=== PATIENT | female | born 1990 | race Caucasian/White ===

== ENCOUNTER → 2023-06-25 12:43 | Outpatient (CLI) | payer OTHER, SELFPAY ==
--- NOTE | 2023-06-25 12:47 | DI.US.S_ITS ---
PROCEDURE: US OB >= 14 WEEKS FETUS INDICATIONS: anatomy OUTSIDE/PRIOR DATING DATA: Last menstrual period (LMP): 02/04/2023. LMP-based estimated date of delivery (JAQUAN): 11/11/2023. First dating scan (date and location): 03/28/2023 (images are not available for review). Estimated date of delivery (JAQUAN) from first dating scan: 11/09/2023. TECHNIQUE: Real-time scanning was performed of the fetus, with image documentation and biometric measurements. COMPARISON: None. FINDINGS: General: A single living intrauterine gestation is present. Presentation: Vertex. Placenta: Placental position is posterior , without previa. Amniotic fluid index: 9.6 cm, normal range is 5-24 cm. Single deepest vertical pocket is 2.7 cm. heart rate: 165 beats per minute. Maternal cervical canal: 3.7 cm long. Normal lower limit is 2.5 cm. biometrics: Biparietal diameter: 5 cm, 21 weeks Head circumference: 18.6 cm, 20 weeks and 6 days Abdominal circumference: 15.5 cm, 20 weeks and 5 days Femur length: 3.2 cm, 20 weeks Clinically estimated gestational age: 20 weeks and 1 day Composite gestational age from present scan: 20 weeks and 5 days Estimated weight and percentile: 353 g, 62 percentile Anatomic survey: Neuro: Ventricles are non-dilated at less than 10 mm. Cisterna magna is normal at 3-11 mm. Cerebellum is normal in size and morphology. Nuchal skin fold: Normal at less than 6 mm between 14-21 weeks gestational age. Face: Nose and lips, facial profile are normal. Spine: No evidence for spina bifida. Heart: 4-chambered heart is present, with normal ventricular outflow tracts. Diaphragm: Diaphragm is intact. Stomach: Left-sided stomach is present. Kidneys: No hydronephrosis. Normal is less than 5 mm in 2nd trimester, less than 7 mm in 3rd trimester. Cord: 3-vessel cord has orthotopic insertion. Bladder: Normal in size. Extremities: All 4 extremities identified. IMPRESSION: Routine anatomic survey without significant abnormalities. Living hall at 20 weeks and 1 day, with concordant biometry at the 62 percentile. Dictated by: Subhash Hoang M.D. on 06/28/2023 at 14:20 Approved by: Subhash Hoang M.D. on 06/28/2023 at 14:23
== END ==
PROVIDERS: Referring Provider Obstetrics & Gynecology; Visit Provider Obstetrics & Gynecology
DX: Z3A.20 20 weeks gestation of pregnancy; Z34.82 Encounter for supervision of other normal pregnancy, second trimester
CPT/HCPCS: 76811

== ENCOUNTER → 2023-07-03 12:29 | Outpatient (CLI) | payer OTHER, SELFPAY ==
[2023-07-04 09:00] LABS: Varicella IgG Antibody 1656 index (Immune >165)
[2023-07-05 17:28] LABS: Hepatitis B Surface Antigen NEGATIVE s/c (NEGATIVE); Rubella Antibody IgG 76.5 IU/mL (>15)
[2023-07-05 20:58] LABS: AFP Value 152.4 ng/mL (.); Gest Age on Col Date 21.3 weeks (.); Insulin Dep Diabetes No (.); OSBR Risk 1IN 311 (.); Results Report (.); Test Results *Screen Negative* (.)
== END ==
PROVIDERS: Referring Provider Obstetrics & Gynecology; Visit Provider Obstetrics & Gynecology
DX: O09.529 Supervision of elderly multigravida, unspecified trimester (principal); Z3A.21 21 weeks gestation of pregnancy
CPT/HCPCS: 36415; 82105; 86762; 86787; 87086; 87340

== ENCOUNTER → 2023-08-03 07:36 | Outpatient (CLI) | payer OTHER, SELFPAY ==
[2023-08-03 09:23] LABS: Hematocrit 35.4 % (36-46)
[2023-08-03 09:51] LABS: GTT (PREG) 1 Hour PP 50gm Dose 93 mg/dL (76-139)
== END ==
PROVIDERS: Referring Provider Obstetrics & Gynecology; Visit Provider Obstetrics & Gynecology
DX: Z34.80 Encounter for supervision of other normal pregnancy, unspecified trimester (principal); Z34.82 Encounter for supervision of other normal pregnancy, second trimester; Z3A.26 26 weeks gestation of pregnancy
CPT/HCPCS: 36415; 82950; 85014; 85018; 86850; 86900; 86901

== ENCOUNTER 2023-10-19 00:57 | Inpatient (IN) | payer OTHER, SELFPAY ==
[2023-10-19 02:38] LABS: Add Manual Diff / Slide Review NO; Basophils Absolute Auto 100 /uL (0-100); Basophils Percent Auto 0.5 % (0-2); Eosinophils Absolute Auto 100 /uL (0-450); Eosinophils Percent Auto 0.7 % (2-4); Hematocrit 42.4 % (36-46); Hemoglobin 14.6 g/dL (12.0-16.0); Lymphocytes Absolute Auto 2000 /uL (1100-4500); Lymphocytes Percent Auto 13.1 % (25-40); Mean Corpuscular HGB Conc 34.5 % (30-36); Mean Corpuscular Hemoglobin 31.4 PG (26-34); Monocytes Absolute Auto 500 /uL (0-900); Monocytes Percent Auto 3.2 % (3-14); Neutrophils Absolute Auto 12400 /uL (1500-7000); Neutrophils Percent Auto 82.5 % (50-75); Platelet Count 283 X10^3/uL (150-400); Red Blood Cell Count 4.65 X10^6/uL (4.0-5.2); Red Cell Distribution Width 13.7 % (11.6-14.8)
[2023-10-19 03:01] VITALS: BP 141/85
[2023-10-19 03:04] LABS: Strep Grp B PCR NEG for Grp B Strep
[2023-10-19] MEDS: fentaNYL 100 MCG/2 ML INJ 50 MCG IV (04:32)
[2023-10-19 06:22] LABS: Aspartate Aminotransferase 22 IU/L (14-36); Blood Urea Nitrogen 15 mg/dL (7-17); Estimated Glomerular Filt Rate > 60 mL/min (>60); Uric Acid 6.2 mg/dL (2.5-6.2)
--- NOTE | 2023-10-19 06:32 | PM.AN.REGBLK ---
Regional Block Pre-procedure PMH/ROS narrative: RAD rarely reaches for albuterol. Anxiety PSH/Anesthesia history narrative: T&A as child ASA Class: II Labs: Hct 42.4 % (36-46) 10/19/23 02:45 Plt Count 283 X10^3/uL (150-400) 10/19/23 02:45 Medications: Current Medications Generic Name Dose Route Start Last Admin Trade Name Freq PRN Reason Stop Dose Admin Calcium Carbonate 1,000 mg 10/19/23 01:44 Calcium Carbonate 500 Mg Tab PO Q4HR PRN Dyspepsia Carboprost Tromethamine 250 mcg 10/19/23 01:44 Carboprost 250 Mcg/Ml Ampul IM Q90M PRN Bleeding Fentanyl 50 mcg 10/19/23 01:44 10/19/23 04:32 Fentanyl 100 Mcg/2 Ml Inj IV 50 mcg Q1H PRN Administration Pain, Moderate (4-6) Lactated Ringer's 1,000 mls @ 100 mls/hr 10/19/23 01:45 Lactated Ringers IV CONT JEM Oxytocin/Lactated Ringer's 30 unit in 500 mls @ 200 mls/hr 10/19/23 01:44 Oxytocin Premix IV CONT PRN Bleeding Protocol Tranexamic Acid 1,000 mg/ 100 mls @ 200 mls/hr 10/19/23 01:44 Sodium Chloride IV NOW PRN Bleeding Ampicillin Sodium 1,000 mg/ 100 mls @ 200 mls/hr 10/19/23 01:45 Sodium Chloride IV Q4H JEM Lidocaine HCl 20 ml 10/19/23 01:44 Lidocaine 1% 20 Ml INJ INTRA-OP PRN Post Delivery Methylergonovine Maleate 0.2 mg 10/19/23 01:44 Methylergonovine 0.2 Mg Tablet PO Q6HR PRN Heavy Bleeding Methylergonovine Maleate 0.2 mg 10/19/23 01:44 Methylergonovine 0.2 Mg/Ml Vial IM NOW PRN Bleeding Misoprostol 800 mcg 10/19/23 01:44 Misoprostol 200 Mcg Tablet GA NOW PRN Bleeding Misoprostol 400 mcg 10/19/23 01:44 Misoprostol 200 Mcg Tablet SL NOW PRN Bleeding Naloxone HCl 0.2 mg 10/19/23 01:44 Naloxone 0.4 Mg/Ml Vial IV Q2MIN PRN Opiate Reversal Ondansetron HCl 4 mg 10/19/23 01:44 Ondansetron 4 Mg/2 Ml Inj IV Q4HR PRN Nausea And Vomiting Oxytocin 10 unit 10/19/23 01:44 Oxytocin 10 Unit/Ml Vial IM NOW PRN Bleeding Allergies: Allergies Allergy/AdvReac Type Severity Reaction Status Date / Time No Known Drug Allergies Allergy Unverified 10/05/23 15:10 Procedure Insertion date: 10/19/23 Insertion time: 05:47 Prep/Local: 1% lidocaine (chloroprep) Interspace: L3-4 Patient position: sitting Needle: 18 gauge Hustead Loss of resistance with: saline FRANCISCA at (cm): 6 Catheter placed at SKIN (cm): 13 Catheter in SPACE (cm): 7 Initial Medications TEST DOSE time: 05:51 TEST DOSE: 1.5% lidocaine with epinephrine 1:200k (mL): 3 BOLUS DOSE time: 06:00 BOLUS DOSE (mL): 5 BOLUS DOSE med: other (.125%bupiv with 2mcg/ml fent) Infusion INFUSION: 0.125% bupivacaine and with fentanyl 2 mcg/mL Initial rate (mL/hr): 6 Post-procedure Anesthesia date START: 10/19/23 Anesthesia time START: 05:31 Anesthesia date END: 10/19/23 Anesthesia time END: 07:50 Post-procedure Anesthesia Assessment: Yes CV function: HR/BP stable, Yes Resp function: RR/sat/airway adequate, Yes Post-op hydration adequate, Yes Pain control adequate, Yes Nausea & vomiting absent, Yes Temperature > 36 C and Yes Mental status appropriate
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
--- NOTE | 2023-10-19 07:15 | PM.OBPNLAB ---
Date/Time Date Patient Seen: 10/19/23 Time Patient Seen: 07:00 Pain Control Pain control: tolerating well Pelvic Exam Dilation (cm): 5 Effacement (%): 90 station: -1 Amniotic membrane status: Ruptured Contractions Contractions on admission: regular Monitor mode: Internal Contraction frequency (min): 4 Contraction duration (min): 1 Contraction pattern: Regular Contraction intensity: Strong/Firm Status status: Category ll Heart Rate Baseline: 120 Monitor Accelerations: Present Monitor Decelerations: Prolonged, Recurrent and Variable Monitor Variability: Moderate Comments: Multiple deep variables to gurwinder 60 bpm, 6 minute prolonged decel Assessment and Plan Assessment: active labor Plan: Comments: Category 2 strip with recurrent deep variables to gurwinder 60 bpm. IUPC placed and 500 cc intrauterine bolus administered with temporary improvement of tracing. Again developed recurrent deep variables/late decelerations with a 6 minute prolonged deceleration at 7:08 a.m. Proceed to stat due to intolerance of labor.
[2023-10-19] MEDS: AZITHROMYCIN 500 MG in DEXTROSE 5% IN WATER 250 ML 250 MG IV (07:40)
[2023-10-19] MEDS: CEFAZOLIN 2 GM/100 ML PREMIX 100 ML IV (07:44)
--- NOTE | 2023-10-19 08:04 | SUR.OPER ---
Supine on padded OR bed, head on pillow, arms secured on padded arm boards at <90 degrees abduction, legs uncrossed, safety belt at thigh, tape over blanket over lower legs.
--- NOTE | 2023-10-19 08:06 | SUR.OPER ---
Viable baby boy born at 0750. Placenta delivered. Cord blood tubes x1 (purple top, not enough blood received to fill both tubes). Placenta and tube given to L&D RN.
--- NOTE | 2023-10-19 08:31 | SUR.OPER ---
No Surgical Consent due to Emergency , See Physician's Note.
[2023-10-19 09:04] VITALS: BP 114/75; PULSE 68; RESP 16; TEMP 36.2; O2SAT 98
[2023-10-19 09:08] VITALS: BP 111/74; PULSE 57; RESP 16; TEMP 36.2; O2SAT 98
--- NOTE | 2023-10-19 09:22 | RT ---
Called stat to emergent of 36 weeks, warmer on and functional. Suction, bag mask and trenton-puff 20/5 functional. Infant recieved with good tone, cry and color. No retractions or distress noted. Dad and Rn at bedside, released by rn
[2023-10-19 09:30] LABS: Cord Venous Blood PCO2 48.7 (27-56); Cord Venous Blood pH 7.267 (7.25-7.45)
[2023-10-19 09:31] LABS: Base Excess Cord Venous Blood -5 (-7.7-1.9); Cord Venous Blood PO2 17 (17-41); HCO3 Cord Venous Blood 22.2; O2 Saturation Cord Venous Bld 18 (14-75)
[2023-10-19 09:32] LABS: pH Cord Arterial Blood 7.18 (7.14-7.38)
[2023-10-19 09:33] LABS: Base Excess Cord Arterial Bld -5 (-9.0-1.8); CO2 Cord Arterial Blood 61.6 (40-71); HCO3 Cord Arterial Blood 23.1; Oxygen Sat Cord Arterial Blood 16 (5-59); PO2 Cord Arterial Blood 17 (6-30)
[2023-10-19 10:54] LABS: Creatinine Urine Random 23.4 mg/dL; Protein (Total) Urine Random 43 mg/dL (0-12); Protein Creatinine Ratio Urine 1.83 GRAM/24H
[2023-10-19 12:56] LABS: Add Manual Diff / Slide Review NO; Basophils Absolute Auto 0 /uL (0-100); Eosinophils Absolute Auto 0 /uL (0-450); Hematocrit 38.5 % (36-46); Hemoglobin 12.8 g/dL (12.0-16.0); Lymphocytes Absolute Auto 900 /uL (1100-4500); Lymphocytes Percent Auto 3.8 % (25-40); Mean Corpuscular HGB Conc 33.3 % (30-36); Mean Corpuscular Hemoglobin 29.9 PG (26-34); Mean Corpuscular Volume 89.6 fL (80-100); Monocytes Absolute Auto 300 /uL (0-900); Monocytes Percent Auto 1.2 % (3-14); Neutrophils Absolute Auto 21600 /uL (1500-7000); Platelet Count 252 X10^3/uL (150-400); Red Blood Cell Count 4.29 X10^6/uL (4.0-5.2); Red Cell Distribution Width 13.5 % (11.6-14.8); White Blood Cell Count 22.8 X10^3/uL (4.5-11.0)
[2023-10-19 13:02] LABS: Alanine Aminotransferase 28 IU/L (<35); Albumin 3.2 g/dL (3.5-5.0); Albumin Globulin Ratio 0.9 (1.0-2.8); Alkaline Phosphatase 294 U/L (38-126); Aspartate Aminotransferase 20 IU/L (14-36); BUN Creatinine Ratio 17.2 (6-22); Bilirubin Total 0.4 mg/dL (0.2-1.3); Blood Urea Nitrogen 10 mg/dL (7-17); Calcium 8.8 mg/dL (8.4-10.2); Carbon Dioxide 23 mmol/L (22-32); Chloride 109 mmol/L (98-107); Estimated Glomerular Filt Rate > 60 mL/min (>60); Globulin 3.4 g/dL (1.7-4.1); Glucose 128 mg/dL (70-100); HEMOLYSIS < 15 (0-50); Potassium 3.9 mmol/L (3.4-5.1); Sodium 135 mmol/L (137-145); Total Protein 6.6 g/dL (6.3-8.2)
[2023-10-19] MEDS: KETOROLAC 30 MG/ML VIAL IV ×2 (14:30→20:18)
[2023-10-19] MEDS: ACETAMINOPHEN 325 MG TABLET 650 MG PO ×2 (16:07→21:57)
--- NOTE | 2023-10-19 19:17 | P.OP_ITS ---
Operative Date/Time/Diagnoses Date of procedure: 10/19/23 Time of procedure: 07:42 Pre-op diagnosis: intolerance of labor Post-op diagnosis: same Procedure & Clinicians Procedure: Primary low transverse section via Pfannenstiel Same procedure as scheduled: Yes Indications: intolerance of labor remote from delivery Surgeon: Kris Johnson Click Yes if Unassisted: No Plastics Tooling Engineer: Josey Ferraro Reason for Plastics Tooling Engineer: Plastics Tooling Engineer required for the safe, effective, and timely completion of this surgery. Anesthesia Type: Spinal Operative Notes Findings: Viable male in ROP position with ascending clinic/brow presentation Closure Type: primary Specimen(s): cord blood and cord pH Intraoperative meds administered: Ketorolac Applied: Catheter Estimated Blood Loss (mL): 300 Blood products transfused: none Procedure in detail: Patient was taken to the operating room where spinal anesthesia was found to be adequate. She was then prepared and draped in the usual sterile fashion in the dorsal supine position with a leftward tilt. A Pfannenstiel incision was then made with a scalpel and carried through to the underlying layer of fascia sharply. The fascia was incised in the midline and incision extended laterally with blunt traction. The superior aspect of the fascial incision was then grasped with Nolvia clamps, elevated, and the underlying rectus muscles dissected off bluntly. Attention was then turned to the inferior aspect of the incision which, in similar fashion, was grasped, tented up with Nolvia clamps, and rectus muscles dissected off bluntly. The rectus muscles were then in the midline, and peritoneum identified, tented up, and entered bluntly. The peritoneal opening was then extended superiorly and inferiorly with good visualization of the bladder. The bladder blade was then inserted and the lower uterine segment incised in a transverse fashion with the scalpel. The uterine incision was then extended laterally with blunt traction. Upon entering the amniotic sac there was moderate amount of clear amniotic fluid. The bladder blade was removed and the head delivered atraumatically. The nose and mouth were suctioned with bulb suction, and the remainder of the body delivered without difficulty. The cord was clamped and cut, and the infant was handed off to the waiting care team. Cord blood was collected and sent. The placenta was then removed manually; the uterus was exteriorized and cleared of all clots and debris. The uterine incision was repaired with 0 Vicryl in a running, locked fashion. A second layer of same suture was used to obtain excellent hemostasis. Tubes and ovaries were examined and were found to be normal, and the uterus returned to the abdomen. The gutters were cleared of all clots, and the peritoneum closed with 2-0 Monocryl. The fascia was reapproximated with 0 Vicryl in a running fashion. The subcutaneous layer was copiously irrigated with warm normal saline. The subcutaneous fat was reapproximated with 3-0 Vicryl. The skin was closed with 3-0 Monocryl. Dermabond was applied to the incision and an Aquacel dressing was placed. The uterus was expressed of a small amount of old blood. Sponge, lap, and needle counts were correct x2. The patient tolerated the procedure well and was taken to the recovery room in stable condition. Complications: none [place] Baby 1: Gender: Male Presentation: brow Position: Right Occiput Posterior Placental Delivery Description: Expressed Cord Vessel Description: 3 Vessels score (1 min): 9 score (5 min): 9 weight: 5 lb 2.188 oz Post-operative Condition: stable Disposition: PACU Aftercare: routine postop
[2023-10-20 00:39] VITALS: BP 132/88; PULSE 66; RESP 17; TEMP 36.6
[2023-10-20] MEDS: KETOROLAC 30 MG/ML VIAL IV (02:17)
[2023-10-20] MEDS: ACETAMINOPHEN 325 MG TABLET 650 MG PO ×3 (03:40→20:37)
[2023-10-20 06:39] LABS: Add Manual Diff / Slide Review NO; Basophils Absolute Auto 300 /uL (0-100); Basophils Percent Auto 1.5 % (0-2); Eosinophils Absolute Auto 100 /uL (0-450); Eosinophils Percent Auto 0.5 % (2-4); Hematocrit 32.8 % (36-46); Lymphocytes Absolute Auto 2900 /uL (1100-4500); Mean Corpuscular HGB Conc 33.5 % (30-36); Mean Corpuscular Volume 89.7 fL (80-100); Monocytes Absolute Auto 600 /uL (0-900); Monocytes Percent Auto 3.4 % (3-14); Neutrophils Absolute Auto 14200 /uL (1500-7000); Neutrophils Percent Auto 78.6 % (50-75); Platelet Count 212 X10^3/uL (150-400); Red Blood Cell Count 3.65 X10^6/uL (4.0-5.2); Red Cell Distribution Width 13.4 % (11.6-14.8)
[2023-10-20] MEDS: DOCUSATE 100 MG CAPSULE PO (08:11)
[2023-10-20] MEDS: PRENATAL VIT,CALC/IRON/FOLIC 1 TABLET 1 TAB PO (08:11)
--- NOTE | 2023-10-20 10:38 | P.PNOB_ITS ---
Subjective - OB Subjective Narrative: Patient reports that she is doing well. Her lochia is decreasing appropriately. She has voided successfully. She is ambulating without difficulty. Her pain is well controlled. She is passing flatus. She continues to work on - baby is sleepy at the breast. She is pumping with minimal colostrum production, formula supplementing as well. She denies any headaches, vision changes, RUQ pain. Swelling is stable. Exam Vital Signs (past 8 hours): Oxygen Delivery Method Room Air Resp Auscultation: clear to auscultation bilaterally Cardio Rate: regular rate Rhythm: regular rhythm Heart Sounds: S1 normal, S2 normal and no murmurs GI Inspection: non-distended and incision (dressing c/d/i) Palpation: soft, No guarding and tender (appropriately tender) Auscultation: normal bowel sounds Other: fundus firm and below the umbilicus Extrem Right upper extremity: edema (1+) Objective Labs 10/20/23 06:25 10/19/23 12:30 Labs: Laboratory Results - last 24 hr 10/19/23 10/19/23 10/20/23 09:25 12:30 06:25 WBC 22.8 H D 18.0 H RBC 4.29 3.65 L Hgb 12.8 11.0 L Hct 38.5 32.8 L MCV 89.6 89.7 MCH 29.9 30.0 MCHC 33.3 33.5 RDW 13.5 13.4 Plt Count 252 212 Neut % (Auto) 95.0 H 78.6 H Lymph % (Auto) 3.8 L 16.0 L [place] % (Auto) 1.2 L 3.4 Eos % (Auto) 0.0 L 0.5 L Baso % (Auto) 0.0 1.5 Neut # (Auto) 97236 H 75576 H Lymph # (Auto) 900 L 2900 [place] # (Auto) 300 600 Eos # (Auto) 0 100 Baso # (Auto) 0 300 H Sodium 135 L Potassium 3.9 Chloride 109 H Carbon Dioxide 23 BUN 10 Creatinine 0.58 Estimated GFR > 60 BUN/Creatinine Ratio 17.2 Glucose 128 H Calcium 8.8 Total Bilirubin 0.4 AST 20 ALT 28 Alkaline Phosphatase 294 H Total Protein 6.6 Albumin 3.2 L Globulin 3.4 Albumin/Globulin Ratio 0.9 L U Random Total Protein 43 H Urine Creatinine 23.4 Protein/Creatinin Ratio 1.83 Assessment & Plan Plan Comments: Pt is a 33yo POD#1 s/p primary for nonreassuring FHT without complications. Pt diagnosed with pre-eclampsia without severe features based on elevated protein/creatinine ratio and elevated BPs. Currently asymptomatic. BPs now in good range. - Normal care - support -- encourage ongoing pumping to promote milk supply - Encourage ambulation today Time Spent With Patient Time: Total time spent is greater than 50% in coordination of care (as documented) at patient's floor/unit and/or counseling patient: Time with patient: 15-24 minutes
[2023-10-20] MEDS: IBUPROFEN 600 MG TABLET PO ×2 (11:16→18:41)
[2023-10-21] MEDS: IBUPROFEN 600 MG TABLET PO ×2 (00:49→06:50)
[2023-10-21] MEDS: ACETAMINOPHEN 325 MG TABLET 650 MG PO ×2 (02:47→09:28)
[2023-10-21] MEDS: PRENATAL VIT,CALC/IRON/FOLIC 1 TABLET 1 TAB PO (09:29)
[2023-10-21] MEDS: DOCUSATE 100 MG CAPSULE PO (09:29)
--- NOTE | 2023-10-21 10:44 | PM.OBDS.1 ---
Discharge Providers Provider Date of admission: 10/19/23 00:57 Discharge Date: 10/21/23 Primary care physician: Doctor Guilherme MD Consults: 10/19/23 01:44 Consult to Anesthesiology Urgent Comment: Consulting Provider: Anesthesiologist Reason for consultation: Epidural 10/19/23 14:12 Consult to Children'S Literature Professor Routine Comment: Discharge provider: Josey Ferraro MD Summary Hospital Course Date Patient Seen: 10/21/23 Diagnoses: 36w5d gestation GBS negative Rh positive Depression/Anxiety Nonreassuring FHT Primary Pre-eclampsia without severe features SGA infant Hospital Course: The pt presented with SROM at home, with regular contractions. She progressed to 5cm dilation. BPs during labor were noted to be intermittently elevated. HELLP labs were completed that were negative. Due to recurrent variable decels, IUPC was placed with amnioinfusion initiated. FHT unfortunately did not improve, the decels began prolonging. Due to nonreassuring FHT, the pt underwent emergent . The surgery was without complications, and the pt delivered a viable baby boy. , protein/creatinine was collected which was elevated. The pt was diagnosed with pre-eclampsia without severe features, as she remained asymptomatic and BPs were only minimally elevated. She never required antihypertensives. There were no additional complications . At the time of discharge she was voiding, ambulating, and passing flatus without difficulty. Her lochia was decreasing appropriately. Her pain was well controlled. She was hand expressing/manual pumping for colostrum production, and supplementing with formula as well. She will f/u in 1 week for incision check. Peripartum Data Infant Delivery Method: Section Procedures: Primary complications: none [place] 1: Gender: Male Disposition of : home Discharge Diagnosis (1) S/P : Status: Acute (2) Non-reassuring heart rate or rhythm affecting management of fetus: Status: Acute Status at Discharge Cognitive/behavioral status at discharge: oriented Functional status at discharge: independent ambulation Overall status at discharge: patient is progressing back to baseline Time Spent with Patient Time attestation: Total time spent providing and/or coordinating discharge services: Objective Labs 10/20/23 06:25 10/19/23 12:30 Exam Vital Signs (past 8 hours): Oxygen Delivery Method Room Air Resp Auscultation: clear to auscultation bilaterally Cardio Rate: regular rate Rhythm: regular rhythm Heart Sounds: S1 normal, S2 normal and no murmurs GI Inspection: non-distended and incision (dressing c/d/i) Palpation: soft, No guarding and tender (appropriately tender) Auscultation: normal bowel sounds Other: fundus firm and below the umbilicus Extrem Other: trace edema Discharge Plan Discharge Plan Patient Disposition: Home Discharge orders & Medications Prescriptions: New ibuprofen 600 mg Tablet 600 mg PO Q6H Qty: 60 0RF Continued (DME) breast pump Device See Rx Instructions .Route Qty: 1 0RF Rx Instructions: Double electric breast pump per insurance bupropion HCl [Wellbutrin XL] 150 mg tablet extended release 24 hr 150 mg PO QAM Qty: 30 3RF hydroxyzine HCl 25 mg tablet 25 mg PO TID PRN (Reason: anxiety) Qty: 20 2RF vit-ferrous sulfat-FA 27 mg iron- 0.8 mg tablet PO Discontinued aspirin 81 mg tablet,delayed release (DR/EC) 81 mg PO DAILY Follow up/Referrals: Eli Carpenter MD [Physician] - 1 Week Doctor Vanegas MD [Primary Care Provider] - Diet/Activity/Treatments Diet: Diet as Tolerated and Regular Skin/Wound/Dressing Care Report to your healthcare provider any signs of infection, such as:: chills, fever, increased pain and unusual drainage Visit Report/Discharge Packet Instructions: DI for Stand Alone Forms: Patient Portal/API, Stroke Signs & Symptoms Discharge Data Primary Care Provider: Doctor Guilherme
== END 2023-10-21 11:42 | disposition home or self-care (01) | DRG 786 ==
PROVIDERS: Family Medicine; Admitting Provider Family Medicine; Referring Provider Family Medicine; Visit Provider Family Medicine
PROC: 10D00Z1 Extraction of Products of Conception, Low, Open Approach (ICD-10-PCS; CPT 59514; principal; 2023-10-19 07:45)
DX: O76 Abnormality in fetal heart rate and rhythm complicating labor and delivery (principal); O60.14X0 Preterm labor third trimester with preterm delivery third trimester, not applicable or unspecified; Z3A.36 36 weeks gestation of pregnancy; Z37.0 Single live birth
CPT/HCPCS: 36415; 59025; 59050; 59510; 59514; 80053; 82565; 82570; 82803; 84112; 84156; 84450; 84520; 84550; 85025; 86850; 86900; 86901; 87081; 87653; G0379; J0690; J1100; J1885; J2274; J2405; J3010

== ENCOUNTER → 2024-06-02 15:51 | Outpatient (CLI) | payer OTHER, SELFPAY | PROVIDERS: Referring Provider Internal Medicine; Visit Provider Internal Medicine | DX: Z23 Encounter for immunization (principal) | CPT/HCPCS: 90471; 90656 ==

== ENCOUNTER → 2025-03-25 15:56 | Outpatient (CLI) | payer OTHER, SELFPAY ==
[2025-03-25 16:39] LABS: Add Manual Diff / Slide Review NO; Hematocrit 37.6 % (36-46); Hemoglobin 12.8 g/dL (12.0-16.0); Lymphocytes Absolute Auto 2000 /uL (1100-4500); Mean Corpuscular HGB Conc 34.1 % (30-36); Mean Corpuscular Hemoglobin 30.3 PG (26-34); Mean Corpuscular Volume 88.9 fL (80-100); Platelet Count 247 X10^3/uL (150-400)
[2025-03-25 17:00] LABS: Natera Collection Specimen Collected
[2025-03-25 17:09] LABS: Alanine Aminotransferase 26 IU/L (<35); Blood Urea Nitrogen 12 mg/dL (7-17); Estimated Glomerular Filt Rate > 60 mL/min (>60); Uric Acid 1.8 mg/dL (2.5-6.2)
[2025-03-25 18:35] LABS: Urine N gonorrhoeae NOT DETECTED
[2025-03-25 18:46] LABS: Urine Chlamydia NOT DETECTED
[2025-03-26 15:29] LABS: Hepatitis B Surface Antigen NEGATIVE s/c (NEGATIVE)
[2025-03-26 15:47] LABS: HIV 1 & 2 Ab/Ag 4th Gen Combo NEGATIVE (NEGATIVE); Hep C Virus Ab w/Reflex Quant NEGATIVE s/c (NEGATIVE)
[2025-03-27 09:39] LABS: Rubeola Measles IgG 233.0 AU/mL (Immune >16.4)
== END ==
PROVIDERS: PCP Family Medicine; Referring Provider Obstetrics & Gynecology; Visit Provider Obstetrics & Gynecology
DX: O09.899 Supervision of other high risk pregnancies, unspecified trimester (principal); Z3A.10 10 weeks gestation of pregnancy
CPT/HCPCS: 36415; 82565; 84450; 84460; 84520; 84550; 85025; 86592; 86735; 86762; 86765; 86787; 86803; 86850; 86900; 86901; 87340; 87389; 87491; 87591

== ENCOUNTER → 2025-05-06 15:12 | Outpatient (CLI) | payer OTHER, SELFPAY ==
--- NOTE | 2025-05-06 15:15 | DI.MRI.S_ITS ---
PROCEDURE: MR HEAD/BRAIN WO CON INDICATIONS: PAIN TECHNIQUE: Noncontrast axial T1 spin echo, axial T2 fast spin echo, sagittal and axial FLAIR, coronal T2 fast spin echo, axial gradient echo, axial diffusion and ADC through the brain. COMPARISON: None. FINDINGS: Image quality: Diagnostic, with note made of motion artifact. CSF Spaces: Basal cisterns are patent. No extra-axial fluid collections. Ventricles are normal in size and shape. Brain: No intracranial masses or hemorrhage. [place]/white matter interface is normal. Brainstem appears normal. Diffusion-weighted images demonstrate no acute infarct. No chronic ischemic insults. Normal intravascular flow voids are present. Skull and face: Calvarium has normal marrow signal. Orbits appear normal. Sinuses: Sinuses and mastoids are clear. IMPRESSION: No imaging explanation is found for this patient's presenting symptoms. To the limits of this noncontrast study, no findings of intracranial masses or mass effect can be seen. Dictated by: Dakota Valentin M.D. on 05/06/2025 at 17:21 Approved by: Dakota Valentin M.D. on 05/06/2025 at 17:22
== END ==
LOC: MRI 15:14
PROVIDERS: PCP Family Medicine; Referring Provider Psychiatry & Neurology Neurology; Visit Provider Psychiatry & Neurology Neurology
DX: M54.81 Occipital neuralgia (principal); M79.18 Myalgia, other site; G43.111 Migraine with aura, intractable, with status migrainosus; Z33.1 Pregnant state, incidental
CPT/HCPCS: 70551

== ENCOUNTER → 2025-05-12 12:47 | Outpatient (CLI) | payer OTHER, SELFPAY ==
[2025-05-15 18:36] LABS: Gest Age on Col Date 16.9 weeks (.); OSBR Risk 1IN 14 (.)
[2025-05-18 12:26] LABS: PDF SEE SCANNED REPORTS
== END ==
PROVIDERS: PCP Family Medicine; Referring Provider Family Medicine; Visit Provider Family Medicine
DX: O09.899 Supervision of other high risk pregnancies, unspecified trimester (principal)
CPT/HCPCS: 36415; 82105

== ENCOUNTER → 2025-05-18 14:51 | Outpatient (CLI) | payer OTHER, SELFPAY ==
--- NOTE | 2025-05-18 14:54 | DI.US.S_ITS ---
PROCEDURE: US OB LIMITED INDICATIONS: positive AFP OUTSIDE/PRIOR DATING DATA: Last menstrual period (LMP): 01/14/2025. LMP-based estimated date of delivery (JAQUAN): 10/21/2025. First dating scan (date and location): Reported as 03/25/2025, location not listed. Estimated date of delivery (JAQUAN) from first dating scan: 10/23/2025. The calculations are made using the LMP based JAQUAN of 10/21/2025. TECHNIQUE: Real-time scanning was performed of the fetus, with image documentation. Endovaginal scanning: Yes COMPARISON: No prior ultrasound available for comparison. FINDINGS: A single living intrauterine gestation is present. Presentation: Vertex. Placenta: Placental position is anterior, without previa. Amniotic fluid index: 12.0 cm, normal range is 5-24 cm. Single deepest vertical pocket is 4.6 cm. heart rate: 152 beats per minute. Maternal cervical canal: 4.6 cm long. Normal lower limit is 2.5 cm. Biparietal distance 4.0 cm, 18 weeks 1 day. Head circumference 14.1 cm, 17 weeks 3 days. Abdominal circumference 11.2 cm, 17 weeks 0 days. Femur length 2.3 cm, 16 weeks, 5 days. Estimated gestational age by had lock measurements 17 weeks, 5 days. Composite gestational age today 17 weeks, 2 days Estimated weight percentile 177 grams, 11 percentile Maternal ovaries not visualized per notes. Limited anatomy evaluation. Stomach/abdomen, placental cord insertion, urinary bladder/pelvis within normal limits. No gross neural tube defect identified. Placental venous lakes are noted. Single septation between placenta and uterine wall upper left fundal of unknown clinical significance. IMPRESSION: Single living intrauterine as discussed above 11th percentile by estimated weight, age 17 weeks 2 days by ultrasound with corresponding JAQUAN by ultrasound 10/24/2025. Continued follow-up suggested Dictated by: Smooth Burgos M.D. on 05/18/2025 at 16:27 Approved by: Smooth Burgos M.D. on 05/18/2025 at 16:36
== END ==
PROVIDERS: PCP Family Medicine; Referring Provider Family Medicine; Visit Provider Family Medicine
DX: O26.892 Other specified pregnancy related conditions, second trimester (principal); R77.2 Abnormality of alphafetoprotein; Z3A.17 17 weeks gestation of pregnancy
CPT/HCPCS: 76815

== ENCOUNTER → 2025-07-22 15:31 | Outpatient (CLI) | payer OTHER, SELFPAY ==
[2025-07-22 17:38] LABS: Add Manual Diff / Slide Review NO; Hematocrit 35.2 % (36-46); Hemoglobin 12.1 g/dL (12.0-16.0); Lymphocytes Absolute Auto 2000 /uL (1100-4500); Mean Corpuscular HGB Conc 34.3 % (30-36); Mean Corpuscular Hemoglobin 31.4 PG (26-34); Mean Corpuscular Volume 91.6 fL (80-100); Platelet Count 241 X10^3/uL (150-400)
[2025-07-22 18:25] LABS: GTT (PREG) 1 Hour PP 50gm Dose 104 mg/dL (76-139)
== END ==
PROVIDERS: PCP Family Medicine; Referring Provider Family Medicine; Visit Provider Family Medicine
DX: O09.899 Supervision of other high risk pregnancies, unspecified trimester (principal)
CPT/HCPCS: 36415; 82950; 85025; 86850